=== PATIENT | male | born 1960 | race Two or more races ===

== ENCOUNTER 2018-03-01 09:16 | Day surgery (SDC) | payer OTHER ==
[~2018-03-01] VITALS: Ht 167.6 cm; Wt 110.2 kg
[2018-03-01] MEDS ORDERED: LIDOCAINE 2% 100 MG/5 ML UJET TP ONE (14:25)
[2018-03-01] MEDS ORDERED: KETOROLAC 30 MG/ML VIAL ONE (14:25)
[2018-03-01] MEDS ORDERED: fentaNYL 0.05 MG/ML VIAL ONE (14:31)
== END 2018-03-01 15:20 | disposition home or self-care (01) ==
LOC: MDS 09:16 → MMU 09:17 → MDS 15:20
PROVIDERS: ATTEND Internal Medicine Gastroenterology
DX: Z12.11 Encounter for screening for malignant neoplasm of colon (principal); E11.9 Type 2 diabetes mellitus without complications; I10 Essential (primary) hypertension; E66.9 Obesity, unspecified; Z68.39 Body mass index [BMI] 39.0-39.9, adult; Z79.1 Long term (current) use of non-steroidal anti-inflammatories (NSAID); Z79.899 Other long term (current) drug therapy
CPT/HCPCS: 45378; J3010; J1885